=== PATIENT | female | born 2000 | race Hispanic/Latino ===

== ENCOUNTER 2025-03-18 05:35 | Emergency (ER) | payer OTHER ==
[~2025-03-18] VITALS: Ht 160 cm; Wt 97.5 kg
[2025-03-18] MEDS ORDERED: SODIUM CHLORIDE 0.9% 1000ML 1,000 ML ONE (06:25)
[2025-03-18] MEDS ORDERED: ONDANSETRON HCL INJ 2MG/ML 2ML 2 MG/ML VIAL ONE (06:25)
[2025-03-18] MEDS ORDERED: Morphine 2mg Syringe 2 MG/ML SYR ONE (06:25)
[2025-03-18 08:53] VITALS: PULSE 68; RESP 18; TEMP 98; O2SAT 98
[2025-03-18 09:10] LABS: BASOPHILS % 0.4 % (0.0-1.0); EOSINOPHILS % 0.9 % (0.0-6.0); LYMPHOCYTES % 28.8 % (18.0-39.1); MONOCYTES % 4.6 % (4.4-11.3); NEUTROPHILS % 65.1 % (38.7-80.0); RED CELL DISTRIBUTION WIDTH 12.3 % (11.7-14.4)
[2025-03-18 09:18] LABS: PREGNANCY TEST, URINE NEGATIVE (NEGATIVE)
[2025-03-18 09:19] LABS: LEUKOCYTE ESTERASE ,URINE NEGATIVE (NEGATIVE); PROTEIN,URINE DIPSTICK TRACE (NEGATIVE); URINE UROBILINOGEN 0.2 mg/dL (0.2 - 1)
[2025-03-18 09:20] LABS: EPITHELIAL CELLS,URINE MANY /LPF
[2025-03-18 09:33] LABS: EST GLOMERULAR FILTRATION RATE 115.0 ML/MIN (>=60)
== END 2025-03-18 09:23 | disposition home or self-care (01) ==
LOC: ER 05:35
DX: R10.11 Right upper quadrant pain (principal); K80.50 Calculus of bile duct without cholangitis or cholecystitis without obstruction; R11.2 Nausea with vomiting, unspecified
CPT/HCPCS: 36415; 76705; 80053; 81001; 81025; 83690; 85025; 99284; J2270; J2405; J7030

== ENCOUNTER 2025-03-25 04:18 | Emergency (ER) | payer OTHER ==
[~2025-03-25] VITALS: Ht 160 cm; Wt 97.5 kg
[2025-03-25 04:38] VITALS: RESP 20
[2025-03-25] MEDS ORDERED: PANTOPRAZOLE SO40 MG PO (04:47)
[2025-03-25] MEDS ORDERED: KETOROLAC TROME10 MG PO (04:47)
[2025-03-25] MEDS ORDERED: DICYCLOMINE HCL20 MG PO (04:47)
[2025-03-25] MEDS ORDERED: ONDANSETRON ODT4 MG SL (04:47)
[2025-03-25] MEDS: ONDANSETRON HCL INJ 2MG/ML 2ML 2 MG/ML VIAL IV STA (04:58)
[2025-03-25] MEDS: DICYCLOMINE HCL 20 MG/2 ML VIAL IM ONE (04:59)
[2025-03-25] MEDS: KETOROLAC TROMETHAMINE 30 MG/ML VIAL IV STA (05:11)
[2025-03-25 05:13] LABS: BASOPHILS % 0.2 % (0.0-1.0); EOSINOPHILS % 0.3 % (0.0-6.0); LYMPHOCYTES % 14.5 % (18.0-39.1); MONOCYTES % 3.5 % (4.4-11.3); NEUTROPHILS % 81.1 % (38.7-80.0); RED CELL DISTRIBUTION WIDTH 12.1 % (11.7-14.4)
[2025-03-25 05:26] LABS: EST GLOMERULAR FILTRATION RATE 108.0 ML/MIN (>=60)
[2025-03-25 05:45] VITALS: PULSE 58; O2SAT 98
[2025-03-25 06:05] VITALS: TEMP 98.3
== END 2025-03-25 05:50 | disposition home or self-care (01) ==
LOC: ER 04:37
DX: R10.11 Right upper quadrant pain (principal); K80.20 Calculus of gallbladder without cholecystitis without obstruction; R11.2 Nausea with vomiting, unspecified
CPT/HCPCS: 36415; 80053; 83690; 85025; 99284; J0500; J1885; J2405; J2470